=== PATIENT | male | born 1995 | race Caucasian/White ===

== ENCOUNTER 2016-07-30 13:07 | Emergency (ER) | payer OTHER ==
[~2016-07-30] VITALS: Ht 162.6 cm; Wt 72.6 kg
[2016-07-30 13:37] VITALS: BP 129/56
[2016-07-30] MEDS ORDERED: NACL 0.9% 1,000 ML IV ONE (13:50)
[2016-07-30 14:15] LABS: BASOPHILS # (AUTO) 0.2 K/uL (0.00-0.22); BASOPHILS % (AUTO) 3.8 % (0.0-2.0); EOSINOPHILS # (AUTO) 0.1 K/uL (0-0.4); HEMATOCRIT 48.6 % (36-52); LYMPHOCYTES # (AUTO) 1.5 K/uL (2.0-11.5); LYMPHOCYTES % (AUTO) 26.6 % (20.5-51.1); MEAN CORPUSCULAR HEMOGLOBIN 28 pg (27-31); MEAN CORPUSCULAR HGB CONC 33 g/dL (33-37); MEAN CORPUSCULAR VOLUME 86 fL (80-94); MONOCYTES # (AUTO) 0.5 K/uL (0.8-1.0); MONOCYTES % (AUTO) 9.7 % (1.7-9.3); NEUTROPHILS # (AUTO) 3.2 K/uL (1.8-7.7); NEUTROPHILS % (AUTO) 58.9 % (42.2-75.2); PLATELET COUNT (AUTO) 185 K/uL (140-450); RED BLOOD CELL COUNT(AUTO) 5.67 MIL/uL (4.20-6.10); RED CELL DISTRIBUTION WIDTH 12.3 % (11.6-13.7); WHITE BLOOD COUNT (AUTO) 5.5 K/uL (4.8-10.8)
[2016-07-30 14:28] LABS: ANION GAP 17.6 (8-16); CALCIUM 9.7 mg/dL (8.5-10.1); CARBON DIOXIDE 22.9 mmol/L (21-32); CHLORIDE 104 mmol/L (98-107); GFR ARICAN-AMERICAN 121 mL/min (>90); GFR NON ARICAN-AMERICAN 100 mL/min (>90); GLUCOSE 104 mg/dL (74-106); POTASSIUM 3.5 mmol/L (3.5-5.1); SODIUM SERUM 141 mmol/L (136-145); UREA NITROGEN, BLOOD 11 mg/dL (7-18)
[2016-07-30 14:33] LABS: ALANINE AMINOTRANSFERASE 21 U/L (12-78); ALBUMIN 4.5 g/dL (3.4-5.0); ALCOHOL, BLOOD < 3 mg/dL (<3); ALKALINE PHOSPHATASE 61 U/L (46-116); ASPARTATE AMINOTRANSFERASE 22 U/L (15-37); BILIRUBIN,DIRECT 0.3 mg/dL (0.0-0.3); TOTAL BILIRUBIN 2.7 mg/dL (0.0-1.0)
[2016-07-30 14:35] LABS: INR 1.2 (0.8-1.2); PROTHROMBIN TIME 11.7 secs (10.8-13.4)
--- NOTE | 2016-07-30 14:39 | NUR ---
Patient ambulated to bed 7. RN evaluating patient at bedside.
--- NOTE | 2016-07-30 14:40 | NUR ---
Dr. Cole evaluating patient at bedside.
--- NOTE | 2016-07-30 14:40 | NUR ---
21/M [facility] FOR EVALUATION OF SOB AND COUGH X3 DAYS. DENIES N/V/D; SKIN IS PINK/WARM/DRY; AAOX4 WITH EVEN AND STEADY GAIT; LUNGS CLEAR BL; HR EVEN AND REGULAR; PATIENT STATES PAIN OF 0/10 AT THIS TIME; VSS; PATIENT POSITIONED FOR COMFORT; HOB ELEVATED; BEDRAILS UP X2; BED DOWN. DINORA CAMPBELL MADE AWARE OF PT STATUS. Addendum: 07/30/16 at 1503 by [email or web address] PROVIED URINE CUP FOR UA COLLECTION.
--- NOTE | 2016-07-30 15:02 | NUR ---
PT FEELS AGIATED ,WANT TO PULL IV OUT. NOTIFIED ER ; NO NEW ORDER. Addendum: 07/30/16 at 1527 by [email or web address] MOTHER AT BEDSIDE. Addendum: 07/30/16 at 1534 by [email or web address] Amendment undone in EDM - 07/30/16 at 1534 by [email or web address] MOTHER AT BEDSIDE.
--- NOTE | 2016-07-30 15:41 | NUR ---
PROVIED APPLE JUICE & WATER. PT'S CALM DOWN BUT STILL CAN'T URINATED; MOTHER STILL AT BEDSIDE.,BP 149/67.
--- NOTE | 2016-07-30 15:41 | NUR ---
Ludivina yu in EDM - 07/30/16 at 1551 by [facility] PROVIED APPLE FABIOLA & WATER. PT'S CALM DOWN BUT STILL CAN'T URINATED; MOTHER STILL AT BEDSIDE.,BP 149/67.
--- NOTE | 2016-07-30 15:58 | NUR ---
SENT UA TO LAB
[2016-07-30 16:05] LABS: APPEARANCE,URINE CLEAR (CLEAR); BILIRUBIN,URINE NEGATIVE (NEGATIVE); BLOOD, URINE NEGATIVE (NEGATIVE); COLOR,URINE YELLOW (YELLOW); LEUKOCYTE ESTERASE ,URINE NEGATIVE (NEGATIVE); NITRITE, URINE NEGATIVE (NEGATIVE); PROTEIN,URINE NEGATIVE (NEGATIVE); UGLUCOSE NEGATIVE (NEGATIVE); UROBILINOGEN,URINE 0.2 EU/dL (0.2 - 1)
[2016-07-30 16:13] LABS: AMPHETAMINE, URINE NEG. ng/ml (NEG <=1000); BARBITURATE, URINE NEG. ng/ml (NEG <=200); BENZODIAZEPINE, URINE NEG. ng/mL (NEG <=200); CANNABINOID, URINE NEG. ng/mL (NEG <=50); COCAINE, URINE NEG. ng/mL (NEG <=300); OPIATE, URINE NEG. ng/mL (NEG <=2000); PHENCYCLIDINE SCREEN,URINE NEG. ng/mL (NEG <=25)
[2016-07-30 17:06] VITALS: BP 138/98
--- NOTE | 2016-07-30 17:07 | NUR ---
Patient discharged with v/s stable. Written and verbal after care instructions given and explained. Patient verbalized understanding. Ambulatory with steady gait. All questions addressed prior to discharge. Advised to follow up with PMD.
== END 2016-07-30 17:07 | disposition home or self-care (01) ==
LOC: MED 13:07
DX: F15.10 Other stimulant abuse, uncomplicated (principal); F41.9 Anxiety disorder, unspecified
CPT/HCPCS: 36415; 80053; 80076; 80305; 81003; 85025; 85610; 85730; 96360; 99284; G0482; J7030

== ENCOUNTER 2021-01-19 00:22 | Emergency (ER) | payer MEDICAID, OTHER ==
[~2021-01-19] VITALS: Ht 167.6 cm; Wt 68.0 kg
[2021-01-19 00:42] VITALS: BP 131/61
--- NOTE | 2021-01-19 00:52 | NUR ---
AMBULATED TO ER BED 12 AT THIS TIME.
--- NOTE | 2021-01-19 01:06 | NUR ---
REQUESTING EVALUATION FOR "DIABETIC PILL REFILL" AND STATES HE RECENTLY HAD A FEVER. NO ACUTE DISTRESS OR DISOCMFORT NOTED.
--- NOTE | 2021-01-19 01:22 | NUR ---
CLEARED FOR DISCHARGE AT THIS TIME. LEFT WITHOUT DISCHARGE PAPERS AND WITHOUT SIGNING DISHCARGE DOCUMENTS.
[2021-01-19 01:23] VITALS: BP 131/61
== END 2021-01-19 01:22 | disposition home or self-care (01) ==
LOC: MED 00:22
DX: E11.9 Type 2 diabetes mellitus without complications (principal); Z76.0 Encounter for issue of repeat prescription
CPT/HCPCS: 99281; 99282

== ENCOUNTER 2021-02-10 20:23 | Emergency (ER) | payer MEDICAID ==
[~2021-02-10] VITALS: Ht 167.6 cm; Wt 59.0 kg
[2021-02-10 20:56] VITALS: BP 120/53
--- NOTE | 2021-02-10 21:34 | NUR ---
pt evaluated by Dr. Richardson.
[2021-02-10] MEDS ORDERED: ACETAMINOPHEN 325 MG TAB PO ONE (21:40)
--- NOTE | 2021-02-10 21:40 | NUR ---
see complete assessment for further information.
--- NOTE | 2021-02-10 22:00 | NUR ---
Patient discharged with v/s stable. Written and verbal after care instructions given and explained. Patient verbalized understanding. Ambulatory with steady gait. All questions addressed prior to discharge. Advised to follow up with PMD. Pt requesting taxi voucher to [facility]. Taxi arranged.
== END 2021-02-10 22:00 | disposition home or self-care (01) ==
LOC: MED 20:23
DX: R10.9 Unspecified abdominal pain (principal); E11.9 Type 2 diabetes mellitus without complications; F17.210 Nicotine dependence, cigarettes, uncomplicated; Z71.6 Tobacco abuse counseling
CPT/HCPCS: 99282

== ENCOUNTER 2021-02-14 15:26 | Emergency (ER) | payer MEDICAID ==
--- NOTE | 2021-02-14 16:14 | NUR ---
ATTEMPTED TO CALL TO TRIAGE NO ANSWER
--- NOTE | 2021-02-14 16:24 | NUR ---
ATTEMPTED TO CALL NUMBER ON FILE, NO ANSWER
--- NOTE | 2021-02-14 17:00 | NUR ---
ATTEMPTED TO CALL TO TRIAGE NO ANSWER 2ND TIME
--- NOTE | 2021-02-14 17:30 | NUR ---
ATTEMPTED TO CALL TO TRIAGE NO ANSWER 3RD TIME
--- NOTE | 2021-02-14 17:46 | NUR ---
PATIENT LEFT WITHOUT BEING SEEN BY DR. CAMACHO. NO FURTHER CARE PROVIDED FOR PATIENT.
== END 2021-02-14 16:14 | disposition left against medical advice (07) ==
LOC: MED 15:26
DX: M79.673 Pain in unspecified foot (principal); Z53.21 Procedure and treatment not carried out due to patient leaving prior to being seen by health care provider

== ENCOUNTER 2021-05-02 22:21 | Emergency (ER) | payer MEDICAID ==
[~2021-05-02] VITALS: Ht 162.6 cm; Wt 74.4 kg
[2021-05-02 22:36] VITALS: BP 118/80
--- NOTE | 2021-05-02 23:02 | NUR ---
Dr. Clark at [facility] to exam patient.
--- NOTE | 2021-05-02 23:14 | NUR ---
Provided a new pants.
[2021-05-02] MEDS ORDERED: ACETAMINOPHEN EXTRA STRENGTH 500 MG TAB PO ONE (23:15)
--- NOTE | 2021-05-02 23:50 | NUR ---
COVID-19 and Flu swabs collected and sent to lab.
[2021-05-03 01:46] VITALS: BP 118/80
--- NOTE | 2021-05-03 01:46 | NUR ---
Patient given written and verbal discharge instructions and verbalizes understanding. Given copies of tests performed during visit. Patient is awake, alert and oriented. Ambulatory with steady gait. Refuses offer of custodial placement. Given list of available shelters in surrounding areas.
== END 2021-05-03 01:46 | disposition home or self-care (01) ==
LOC: MED 22:21
DX: R53.81 Other malaise (principal); Z20.822 Contact with and (suspected) exposure to COVID-19; R50.9 Fever, unspecified; I10 Essential (primary) hypertension; Z79.899 Other long term (current) drug therapy; Z59.00 Homelessness unspecified
CPT/HCPCS: 99283

== ENCOUNTER 2021-05-08 23:32 | Emergency (ER) | payer MEDICAID ==
[~2021-05-08] VITALS: Ht 165.1 cm; Wt 71.2 kg
[2021-05-08 23:48] VITALS: BP 109/60
--- NOTE | 2021-05-08 23:51 | NUR ---
TO LOBBY A/W BED AMBULATORY
--- NOTE | 2021-05-09 01:30 | NUR ---
TO CHAIR A, AMBULATORY
--- NOTE | 2021-05-09 01:55 | NUR ---
SEEN AND EXAMINED BY HONG
[2021-05-09 03:25] VITALS: BP 115/78
== END 2021-05-09 03:25 | disposition home or self-care (01) ==
LOC: MED 23:32
DX: R50.9 Fever, unspecified (principal); I10 Essential (primary) hypertension
CPT/HCPCS: 99281

== ENCOUNTER 2021-05-14 21:10 | Emergency (ER) | payer MEDICAID ==
[~2021-05-14] VITALS: Ht 165.1 cm; Wt 65.8 kg
[2021-05-14 21:10] VITALS: BP 124/59
--- NOTE | 2021-05-14 21:10 | NUR ---
PATIENT BIBA FROM [facility] FOR C/O 5150 DTS. PATIENT PLACED ON 5150 HOLD FROM [facility]. PER HOLD PATIENT WENT TO [place] AND STATED HEARING VOICES TO HURT SELF. PATIENT ALSO NOTED WITH LACERATION ON L HAND. PER PATIENT OCCURED X 2 DAYS AGO. PATIENT NOTED WITH DEBRIS, REDDNESS, AND SWELLING AT LACERATION SITE. PATIENT SENSATION OF 5TH AND 4TH DIGIT INTACT. PATIENT HAS SLIGHT ROM OF FINGERS. CAP REFILL<3. MEDHX: SCHIZOAFFECTIVE DISORDER RX: NONCOMPLIANT X 3 MONTHS, DOES NOT REMEMBER NAME OF RX
--- NOTE | 2021-05-14 21:15 | NUR ---
[facility]EL[facility] FOLRESS TO ER BED 06
[2021-05-14] MEDS ORDERED: LIDOCAINE 2% 1000 MG/50 ML VIAL INJ ONE ×2 (21:25→22:49)
[2021-05-14 21:54] LABS: BASOPHILS % (AUTO) 0.5 % (0.0-2.0); EOSINOPHILS % (AUTO) 0.9 % (0.0-4.0); HEMATOCRIT 46.2 % (36-52); HEMOGLOBIN 15.7 g/dL (12.0-18.0); LYMPHOCYTES # (AUTO) 1.9 K/uL (2.0-11.5); LYMPHOCYTES % (AUTO) 35.8 % (20.5-51.1); MEAN CORPUSCULAR HEMOGLOBIN 29 pg (27-31); MEAN CORPUSCULAR HGB CONC 34 g/dL (33-37); MONOCYTES # (AUTO) 0.4 K/uL (0.8-1.0); MONOCYTES % (AUTO) 8.2 % (1.7-9.3); NEUTROPHILS % (AUTO) 54.6 % (42.2-75.2); PLATELET COUNT (AUTO) 207 K/uL (140-450); RED BLOOD CELL COUNT(AUTO) 5.38 MIL/uL (4.20-6.10); RED CELL DISTRIBUTION WIDTH 12.7 % (11.6-13.7); WHITE BLOOD COUNT (AUTO) 5.4 K/uL (4.8-10.8)
--- NOTE | 2021-05-14 22:12 | NUR ---
PT'S BELONGINGS GATHERED AND COLLECTED BY SECURITY FOR STORAGE IN HOSPITAL [facility]AF[facility].
[2021-05-14 22:36] LABS: ACETAMINOPHEN < 0.5 ug/ml (10-30); ANION GAP 16.1 (8-16); ASPARTATE AMINOTRANSFERASE 28 U/L (15-37); CARBON DIOXIDE 23.8 mmol/L (21-32); CHLORIDE 99 mmol/L (98-107); CREATININE 0.9 mg/dL (0.6-1.3); GFR ARICAN-AMERICAN 131 mL/min (>90); GLUCOSE 82 mg/dL (74-106); POTASSIUM 3.9 mmol/L (3.5-5.1); SALICYLATE < 2.8 mg/dL (2.8-20.0); SODIUM SERUM 135 mmol/L (136-145); TOTAL BILIRUBIN 1.7 mg/dL (0.0-1.0); UREA NITROGEN, BLOOD 13 mg/dL (7-18)
--- NOTE | 2021-05-14 23:28 | NUR ---
PT IS RESTING . SIDE RAILS UP. ER MD TO REPAIR LAC TO HAND . LACERATION REPAIR SUPPLIES AT BED SIDE
--- NOTE | 2021-05-15 01:20 | NUR ---
PT RESTING IN BED. ASLEEP. SIDE RAILS UP .
--- NOTE | 2021-05-15 03:15 | NUR ---
PT RESTING ASLEEP ; SIDE RAILS UP
--- NOTE | 2021-05-15 04:22 | NUR ---
WALKED PT TO BATHROOM ; GAIT UNSTEADY. URINE OBTAINED AND SENT TO LAB.
[2021-05-15 04:27] LABS: APPEARANCE,URINE HAZY (CLEAR); BILIRUBIN,URINE 2+ (NEGATIVE); BLOOD, URINE NEGATIVE (NEGATIVE); LEUKOCYTE ESTERASE ,URINE NEGATIVE (NEGATIVE); NITRITE, URINE NEGATIVE (NEGATIVE); UGLUCOSE NEGATIVE (NEGATIVE)
[2021-05-15 04:37] LABS: BARBITURATE, URINE NEGATIVE ng/ml (NEG <=200); BENZODIAZEPINE, URINE NEGATIVE ng/mL (NEG <=200); CANNABINOID, URINE NEGATIVE ng/mL (NEG <=50); COCAINE, URINE NEGATIVE ng/mL (NEG <=300); OPIATE, URINE NEGATIVE ng/mL (NEG <=2000); PHENCYCLIDINE SCREEN,URINE NEGATIVE ng/mL (NEG <=25)
--- NOTE | 2021-05-15 04:39 | NUR ---
RAPID SWAB OBTAINED AND SENT TO LAB
[2021-05-15 04:51] LABS: COLOR,URINE DARK YELLOW (YELLOW)
[2021-05-15 04:53] LABS: RBC,URINE 0-5 /HPF (0-5); WBC,URINE 0-5 /HPF (0-5)
--- NOTE | 2021-05-15 05:55 | NUR ---
CALLED [facility] FOR TELEPSYCH APPT AND FAXED F/S
--- NOTE | 2021-05-15 06:03 | NUR ---
PT MEDICALLY CLEARED F/S AND CLINCALS FAXED TO [facility] FOR PLACEMENT
--- NOTE | 2021-05-15 06:04 | NUR ---
PT MED CLEARED PER ER MD FOR PLACEMENT . PAPERWORK FAXED
--- NOTE | 2021-05-15 07:18 | NUR ---
report received from night RN for transfer of care
--- NOTE | 2021-05-15 07:47 | NUR ---
Patient appears to be resting comfortably in bed. Vital Signs within normal limits. Respirations even and unlabored.
--- NOTE | 2021-05-15 09:20 | NUR ---
PT CURRENTLY ON TELEPSY CONSULATION WITH DR. Estevez
--- NOTE | 2021-05-15 09:37 | NUR ---
PT EATING BREAKFAST BEDSIDE
--- NOTE | 2021-05-15 11:43 | NUR ---
SPOKE WITH ANNA FROM [facility]. PROVIDED NURSING REPORT AND PER ANNA THEY CAN ACCEPT PATIENT. PT WILL GO TO UNIT [address] HUSAIN
--- NOTE | 2021-05-15 11:54 | NUR ---
Patient to be transferred to [facility]. Is being transferred due to HIGHER LEVEL OF CARE. Receiving facility has accepting physician and available space. ER physician has signed transfer form. Patient or responsible libertarian has agreed to transfer and signed form. Patient belongings inventoried and will be sent with patient. Copy of nursing notes, lab reports, EKG, Physicians Orders and X-rays to be sent with patient. Report called to ANNA at receiving facility. [facility] ambulance service has been called for transfer. ETA is 1230.
--- NOTE | 2021-05-15 12:00 | NUR ---
Patient appears to be resting comfortably in bed. Vital Signs within normal limits. Respirations even and unlabored. WILL CONTINUE TO MONITOR
--- NOTE | 2021-05-15 12:29 | NUR ---
[facility] transporation bedside
--- NOTE | 2021-05-15 12:32 | NUR ---
[facility] TRANSPORATION LEFT WITH PATIENT VIA GURNEY TO [facility]
[2021-05-15 12:33] VITALS: BP 123/54
== END 2021-05-15 12:33 ==
LOC: MED 21:10
DX: S61.411A Laceration without foreign body of right hand, initial encounter (principal); Z20.822 Contact with and (suspected) exposure to COVID-19; F29 Unspecified psychosis not due to a substance or known physiological condition; I10 Essential (primary) hypertension; F12.90 Cannabis use, unspecified, uncomplicated; X78.8XXA Intentional self-harm by other sharp object, initial encounter; Y93.89 Activity, other specified; Y92.89 Other specified places as the place of occurrence of the external cause; Y99.8 Other external cause status
CPT/HCPCS: 12002; 36415; 73140; 80053; 80305; 81001; 85025; 87086; 87426; 90471; 90715; 99285; C9803; G0480; G0482; J2001; Q0092

== ENCOUNTER 2021-06-07 22:15 | Emergency (ER) | payer MEDICAID ==
[~2021-06-07] VITALS: Ht 157.5 cm; Wt 63.5 kg
[2021-06-07 22:54] VITALS: BP 147/82
--- NOTE | 2021-06-07 23:45 | NUR ---
PT TAKEN TO BED 3
--- NOTE | 2021-06-07 23:55 | NUR ---
26 y/o male bibs c/o back pain 07/23, pt stated he fell off the roof of a house while drinking etoh today ay 2pm, pt could not remember if he hit his head, denies head pain & dizziness. pt appears to be under the influence and is a poor historian. pmh: denies meds: denies knda
--- NOTE | 2021-06-08 00:10 | NUR ---
Dr. Leroy examining patient.
[2021-06-08] MEDS ORDERED: IBUPROFEN CHILDRENS 100 MG/5 ML UDC PO ONE (00:15)
[2021-06-08] MEDS ORDERED: NAPR-1704 PO (00:59)
[2021-06-08 01:05] VITALS: BP 147/82
== END 2021-06-08 01:05 | disposition home or self-care (01) ==
LOC: MED 22:15
DX: S29.9XXA Unspecified injury of thorax, initial encounter (principal); I10 Essential (primary) hypertension; F17.200 Nicotine dependence, unspecified, uncomplicated; Z79.1 Long term (current) use of non-steroidal anti-inflammatories (NSAID); W18.39XA Other fall on same level, initial encounter; Y92.096 Garden or yard of other non-institutional residence as the place of occurrence of the external cause; Y93.89 Activity, other specified; Y99.8 Other external cause status
CPT/HCPCS: 99282

== ENCOUNTER 2021-07-25 21:26 | Emergency (ER) | payer MEDICAID ==
[~2021-07-25] VITALS: Ht 162.6 cm; Wt 56.7 kg
[~2021-07-25 21:26] MED LIST: NAPR-1704 PO
[2021-07-25 21:48] VITALS: BP 119/73
--- NOTE | 2021-07-25 21:52 | NUR ---
Patient waited in lobby and provided food as request.
--- NOTE | 2021-07-25 22:59 | NUR ---
Patient ambulated to bed 3.
--- NOTE | 2021-07-25 23:00 | NUR ---
Patient came to ER. C/O upper back pain x 2 days. Patient reported, had upper back pain for 2 days, no injury. A/O,X4, left upper back pain, no radiate pain, pain rate 7/10.
--- NOTE | 2021-07-26 00:22 | NUR ---
Dr. Basurto examining patient.
[2021-07-26] MEDS ORDERED: IBUPROFEN 800 MG TAB PO ONE (00:30)
[2021-07-26] MEDS ORDERED: LIDOCAINE 5% 1 EA PATCH TP SCH (00:30)
[2021-07-26] MEDS ORDERED: methocarbamoL 500 MG TAB PO ONE (00:30)
[2021-07-26] MEDS ORDERED: IBUP-2213 PO (00:54)
[2021-07-26] MEDS ORDERED: METH-1681 PO (00:54)
[2021-07-26] MEDS ORDERED: LID5T TP (00:54)
[2021-07-26 01:27] VITALS: BP 123/76
--- NOTE | 2021-07-26 01:27 | NUR ---
Patient discharged with v/s stable. Written and verbal after care instructions given and explained for muscle strain. Patient alert, oriented and verbalized understanding of instructions. Ambulatory with steady gait. All questions addressed prior to discharge. ID band removed. Patient advised to follow up with PMD. Rx of Ibuprofen, Lidoderm and Robaxin given. Patient educated on indication of medication including possible reaction and side effects. Opportunity to ask questions provided and answered.
== END 2021-07-26 01:27 | disposition home or self-care (01) ==
LOC: MED 21:26
DX: S29.012A Strain of muscle and tendon of back wall of thorax, initial encounter (principal); I10 Essential (primary) hypertension; Z59.02 Unsheltered homelessness; F17.200 Nicotine dependence, unspecified, uncomplicated; X58.XXXA Exposure to other specified factors, initial encounter; Y93.89 Activity, other specified; Y92.89 Other specified places as the place of occurrence of the external cause; Y99.8 Other external cause status
CPT/HCPCS: 99284

== ENCOUNTER 2021-10-24 21:48 | Emergency (ER) | payer MEDICAID, OTHER ==
[~2021-10-24] VITALS: Ht 162.6 cm; Wt 63.5 kg
[~2021-10-24 21:48] MED LIST changes: +IBUP-2213 PO; +LID5T TP; +METH-1681 PO
[2021-10-24 22:18] VITALS: BP 137/92
--- NOTE | 2021-10-24 22:25 | NUR ---
TO LOBBY FOLLOWING TRIAGE
[2021-10-25] MEDS ORDERED: ACETAMINOPHEN EXTRA STRENGTH 500 MG TAB PO ONE (00:20)
[2021-10-25] MEDS ORDERED: IBUPROFEN 600 MG TAB PO ONE (00:20)
--- NOTE | 2021-10-25 02:34 | NUR ---
PT WAS EXAMINED BY ER AND WAS MEDICATED THEN ELOPED
--- NOTE | 2021-10-25 02:34 | NUR ---
PATIENT ELOPED FROM FACILITY. DISCHARGE INSTRUCTIONS NOT GIVEN TO PATIENT. DR. CABEZAS NOTIFIED.
== END 2021-10-25 02:34 | disposition left against medical advice (07) ==
LOC: MED 21:48
DX: M25.551 Pain in right hip (principal); I10 Essential (primary) hypertension; F17.200 Nicotine dependence, unspecified, uncomplicated; Z79.899 Other long term (current) drug therapy
CPT/HCPCS: 99283

== ENCOUNTER 2023-06-16 03:56 | Emergency (ER) | payer OTHER ==
[~2023-06-16] VITALS: Ht 162.6 cm; Wt 58.5 kg
[2023-06-16 04:05] VITALS: BP 111/86; PULSE 110; RESP 18; TEMP 97.9; O2SAT 97
[2023-06-16 04:24] VITALS: O2SAT 97
[2023-06-16 04:27] VITALS: BP 128/52; PULSE 100; RESP 19; TEMP 98.3; O2SAT 97
[2023-06-16] MEDS: NACL 0.9% 1,000 ML IV ONE (05:01)
[2023-06-16] MEDS: ONDANSETRON 4 MG/2 ML VIAL IVP ONE (05:18)
[2023-06-16 05:28] LABS: APPEARANCE,URINE CLEAR (CLEAR); BILIRUBIN,URINE 2+ (NEGATIVE); BLOOD, URINE NEGATIVE (NEGATIVE); COLOR,URINE YELLOW (YELLOW); LEUKOCYTE ESTERASE ,URINE NEGATIVE (NEGATIVE); NITRITE, URINE NEGATIVE (NEGATIVE); PROTEIN,URINE 1+ (NEGATIVE); UGLUCOSE NEGATIVE (NEGATIVE); UROBILINOGEN,URINE 0.2 EU/dL (0.2 - 1)
[2023-06-16 05:39] LABS: AMPHETAMINE, URINE POSITIVE ng/ml (NEG <=1000); BARBITURATE, URINE NEGATIVE ng/ml (NEG <=200); BENZODIAZEPINE, URINE NEGATIVE ng/mL (NEG <=200); CANNABINOID, URINE NEGATIVE ng/mL (NEG <=50); COCAINE, URINE NEGATIVE ng/mL (NEG <=300); OPIATE, URINE NEGATIVE ng/mL (NEG <=2000); PHENCYCLIDINE SCREEN,URINE NEGATIVE ng/mL (NEG <=25)
[2023-06-16 05:41] LABS: ICTOTEST POSITIVE (NEGATIVE)
[2023-06-16] MEDS ORDERED: QUET200T PO (05:46)
== END 2023-06-16 06:00 | disposition home or self-care (01) ==
LOC: MED 03:56
DX: F20.9 Schizophrenia, unspecified (principal); T43.655A Adverse effect of methamphetamines, initial encounter; Y92.89 Other specified places as the place of occurrence of the external cause; Z79.1 Long term (current) use of non-steroidal anti-inflammatories (NSAID); Z79.899 Other long term (current) drug therapy
CPT/HCPCS: 80305; 81003; 96361; 96374; 99283; J2405; J7030